=== PATIENT | male | born 1990 | race Caucasian/White ===

== ENCOUNTER → 2017-01-14 | Day surgery (SDC) | payer OTHER ==
[~2017-01-14] VITALS: Ht 182.9 cm; Wt 65.8 kg
[~2017-01-14] MED LIST: 0.9% Sodium Chloride 1,000 ML IV SCH; CYCL5TAB PO; ESOM40CA41 PO; FLUT16SP NS; GUAN1TAB16 PO; IBUP-1827 PO; NPR500T PO; RISP2TAB3 PO; Sodium Chloride LOK Flush 10 mL Syringe IV PRN; fentaNYL-PF 50 mCg/mL 2 mL Inj IVPUSH PRN
[2017-01-14 09:39] VITALS: BP 124/70; PULSE 70; RESP 17; O2SAT 100
[2017-01-14 10:57] VITALS: BP 118/69; PULSE 55; RESP 16; O2SAT 97
[2017-01-14 11:07] VITALS: BP 120/73; PULSE 57; RESP 16; O2SAT 99
[2017-01-14 11:17] VITALS: BP 130/76; PULSE 63; RESP 16; O2SAT 99
[2017-01-14 11:27] VITALS: BP 113/69; PULSE 56; RESP 16; O2SAT 99
[2017-01-14 11:37] VITALS: BP 115/75; PULSE 55; RESP 16; O2SAT 100
--- NOTE | 2017-01-14 20:24 | ENDO ---
[address] [address] ENDOSCOPY PROCEDURE PATIENT: ADILSON KIM : 1990 MR#: [id number] ADMIT: 01/14/2017 JOB ID: [id number] DATE OF SERVICE: 01/14/2017 PROCEDURE: Esophagogastroduodenoscopy with biopsy. PREOPERATIVE DIAGNOSIS(ES): Gastroesophageal reflux disease and dysphagia. POSTOPERATIVE DIAGNOSIS(ES): 1. Concentric rings and vertical furrows concerning for eosinophilic esophagitis seen throughout the entire upper esophagus, status post biopsy. 2. Mild nonerosive gastritis. ANESTHESIA: Fentanyl 100 mcg, Versed 5 mg IV administered. COMPLICATIONS: None. BLOOD LOSS: Minimal. DESCRIPTION OF PROCEDURE: After risks and benefits were explained to the patient, informed was obtained. After adequate anesthesia administered, upper endoscope was inserted in the mouth, intubated into the esophagus, stomach, second portion of duodenum. Mucosa carefully examined. After procedure was done, the scope withdrawn and procedure terminated. FINDINGS: Upon inspection of the esophagus, there were concentric rings and vertical furrows suspicious for eosinophilic esophagitis, status post biopsy in mid distal esophagus. Z-line located 45 cm from incisors. Upon inspection of the stomach, there is mild nonerosive gastritis. No masses or ulcers were seen. Retroflexion in the duodenal bulb, second portion normal. Biopsies taken of antrum and body of mid distal esophagus. IMPRESSION: 1. Concentric rings, vertical furrows concerning for eosinophilic esophagitis throughout the entire esophagus, status post biopsy. 2. Mild nonerosive gastritis. RECOMMENDATIONS: 1. Nexium 40 mg by mouth twice a day. 2. Await biopsy results. 3. Follow up in GI clinic in two weeks.
--- NOTE | 2017-01-17 12:49 | PATH ---
SURGICAL PATHOLOGY Attending Physician:Saman Acuña MD CASE STATUS: Signed Out PATIENT NAME: ADILSON KIM PID: [id number] : 1990 DATE COLLECTED:01/14/2017 19:58 SPECIMEN: 1: Stomach, Antrum, Biopsy 2: Gastric, Biopsy 3: Esophagus, Biopsy 4: Esophagus, Biopsy CLINICAL HISTORY: DYSPHAGIA 1). ANTRUM BIOPSY 2). GASTRIC BODY BIOPSY 3). DISTAL ESOPHAGUS BIOPSY 4). MID ESOPHAGUS BIOPSY FINAL DIAGNOSIS: 1-2. Gastric Antrum, Body, Biopsies: Gastric antral and body mucosa with no diagnostic abnormality. No evidence of Helicobacter organisms on H&E stain. Negative for intestinal metaplasia, dysplasia or malignancy. 3. Distal Esophagus, Biopsy: Squamocolumnar junctional mucosa with up to 38 eosinophils per 48X high-power field. See Comment. Negative for intestinal metaplasia, dysplasia or malignancy. 4. Mid Esophagus, Biopsy: Squamous epithelium with up to 45 eosinophils per 40X high-power field. See Comment. Negative for dysplasia or malignancy. ICD10: R13.10 NOTE: Parts 3 and 4: In the proper clinical setting, the findings in the distal and mid esophagus would support a clinical impression of eosinophilic esophagitis. The differential diagnosis includes drug reaction, gastroesophageal reflux, and food allergies. GROSS DESCRIPTION: The specimen is received in four formalin filled containers labeled with the patient's name. 1). The specimen is labeled "antrum" and consists of 2 portions of tissue which aggregate to 0.3 x 0.2 x 0.2 CM. The specimen is entirely submitted in cassette 1A. 2). The specimen is labeled "gastric body" and consists of 2 portions of tissue which aggregate to 0.4 x 0.3 x 0.2 CM. The specimen is entirely submitted in cassettes 2A. 3). The specimen is labeled "distal esophagus" and consists of 3 tiny portions of tissue which aggregate to 0.2-0.2 x 0.2 CM. The specimen is entirely submitted in cassette 3A. 4). The specimen is labeled "mid esophagus" and consists of 3 tiny portions of tissue which aggregate to 0.2 x 0.2 x 0.1 CM. The specimen is entirely submitted in cassette 4A. 01/14/2017DC ICD-9 CODES: CPT CODES: 1: 88602 2: 63863 3: 30401 4: 64404 Electronically Signed Out Fredi Alonzo MD, Ph.D. [facility] [address], [place] [address] Technical component performed at [facility], [address], [place], [address]
== END | disposition home or self-care (01) ==
LOC: END 00:25
PROVIDERS: ATTEND Internal Medicine Gastroenterology
DX: K29.70 Gastritis, unspecified, without bleeding (principal); R13.10 Dysphagia, unspecified; K21.9 Gastro-esophageal reflux disease without esophagitis; J45.909 Unspecified asthma, uncomplicated; F31.9 Bipolar disorder, unspecified; M54.16 Radiculopathy, lumbar region
CPT/HCPCS: 43239; 99152; J2250; J3010; J7030